=== PATIENT | male | born 1940 | race Caucasian/White ===

== ENCOUNTER 2017-11-12 11:30 | Emergency (ER) | payer MEDICARE ==
[~2017-11-12] VITALS: Ht 177.8 cm; Wt 117.0 kg
[~2017-11-12 11:30] MED LIST: ALLE10TA12 PO; ASCO500C PO; ASPI81TA82 PO; CALTTAB PO; GLUC1CAP14 PO; MOBI7.5T PO; NALT1TAB3 PO; OMEG100037 PO; PIND5 PO; TAB-TAB PO; TAMS0.4C67 PO
[2017-11-12 11:45] VITALS: BP 158/87; PULSE 83; RESP 16; TEMP 98.9; O2SAT 95
[2017-11-12] MEDS ORDERED: METF500T PO (12:49)
[2017-11-12] MEDS ORDERED: METF1000 PO (12:49)
[2017-11-12] MEDS ORDERED: ZOCO20TA PO (12:49)
[2017-11-12] MEDS ORDERED: CANA300T PO (12:49)
[2017-11-12] MEDS ORDERED: ASPI-516 PO (12:49)
[2017-11-12] MEDS ORDERED: CLAR10CA3 PO (12:49)
[2017-11-12] MEDS ORDERED: RANI150T PO (12:49)
[2017-11-12] MEDS ORDERED: PIND5 PO (12:49)
[2017-11-12] MEDS ORDERED: BUPR100T4 PO (12:49)
[2017-11-12] MEDS ORDERED: LIDO1ADH4 (12:49)
--- NOTE | 2017-11-12 13:12 | PD ---
HPI Chief Complaint: Cold / Flu Symptoms Time Seen by Provider: 13:01 Travel History International Travel<30 days: No Contact w/Intl Traveler<30days: No Traveled to known affect area: No History of Present Illness HPI 76-year-old male presents to the emergency department for evaluation of flulike symptoms for 10 days. Patient reports subjective fevers, sore throat, body aches, cough, congestion, shortness of breath. He states that he started with wheezing today. Patient denies any chest pain. He states he did have diarrhea , but this is resolved. Patient's past medical history of diabetes, hypertension, hyperlipidemia, LBBB. Patient denies exacerbating or alleviating factors. Moderate severity. PFSH Past Medical History Cancer: No Cardiovascular Problems: Yes (LEFT BBB) Diabetes: No Endocrine: No Gastrointestinal Disorders: Yes (SLIPPED LAP BAND) Genitourinary: Yes (HX BPH) Hepatitis: No Hiatal Hernia: No Hypertension: Yes Immune Disorder: No Musculoskeletal: Yes (ARTHRITIS, LUMBAR DISC ISSUES) Neurologic: No Psychiatric: No Reproductive: No Respiratory: Yes (SLEEP APNEA/ CPAP) Thyroid Disease: No Past Surgical History Abdominal Surgery: Yes (LAP BAND IMPL.) AICD: No Body Medical Devices: LAP BAND Cardiac Surgery: Yes (CARDIAC CATH) Genitourinary Surgery: Yes (TURP) Joint Replacement: Yes (DANNA. KNEES) Oral Surgery: Yes (T & A) Pacemaker: No Thoracic Surgery: No Other Surgery: Yes Social History Alcohol Use: No Tobacco Use: No Substance Use: No Allergies-Medications (Allergen,Severity, Reaction): Coded Allergies: No Known Allergies (Unverified Adverse Reaction, Unknown, 11/12/17) Reported Meds & Prescriptions Reported Meds & Active Scripts Active Reported Lidoderm (Lidocaine) 5 % Adh..patch Zocor (Simvastatin) 20 Mg Tab 20 Mg PO DAILY Invokana (Canagliflozin) 300 Mg Tab 300 Mg PO DAILY Take before 1st meal of day. Claritin (Loratadine) 10 Mg Cap 10 Mg PO DAILY Bupropion HCl 100 Mg Tab 100 Mg PO BID Metformin (Metformin HCl) 500 Mg Tab 500 Mg PO DAILY With a meal Metformin (Metformin HCl) 1,000 Mg Tab 1,000 Mg PO HS With a meal Ranitidine (Ranitidine HCl) 150 Mg Tab 150 Mg PO BID Pindolol 5 Mg Tab 2.5 Mg PO BID Aspirin 81 Mg Chew 2 Tab PO HS Review of Systems Except as stated in HPI: all other systems reviewed are Neg Physical Exam Narrative GENERAL: Well-nourished, well-developed elderly male patient, afebrile. SKIN: Focused skin assessment warm/dry. HEAD: Normocephalic. Atraumatic. ENT: Mucosa pink and moist. No erythema or exudates. No uvular edema. No uvular , palatal, or tonsillar deviation. Airway patent. Nasal turbinates appear normal without nasal blood, purulent drainage or septal hematoma. Bilateral tympanic membranes are clear without erythema or perforation. EYES: No scleral icterus. No injection or drainage. NECK: Supple, trachea midline. No JVD or lymphadenopathy. CARDIOVASCULAR: Regular rate and rhythm without murmurs, gallops, or rubs. RESPIRATORY: Breath sounds equal bilaterally. No accessory muscle use. Lungs sounds with expiratory and expiratory wheezes noted throughout. GASTROINTESTINAL: Abdomen soft, non-tender, nondistended. MUSCULOSKELETAL: No cyanosis, or edema. BACK: Nontender without obvious deformity. No CVA tenderness. Data Data Last Documented VS Vital Signs Date Time Temp Pulse Resp B/P (MAP) Pulse Ox O2 Delivery O2 Flow Rate FiO2 11/12/17 13:27 98 11/12/17 11:45 98.9 83 16 158/87 (110) Orders Orders Complete Blood Count With Diff (11/12/17 13:08) Basic Metabolic Panel (Bmp) (11/12/17 13:08) Act Partial Throm Time (Ptt) (11/12/17 13:08) Prothrombin Time / Inr (Pt) (11/12/17 13:08) Magnesium (Mg) (11/12/17 13:08) Ckmb (Isoenzyme) Profile (11/12/17 13:08) Troponin I (11/12/17 13:08) Influenzae A/B Antigen (11/12/17 13:08) Iv Access Insert/Monitor (11/12/17 13:08) Electrocardiogram (11/12/17 13:08) Ecg Monitoring (11/12/17 13:08) Oximetry (11/12/17 13:08) Oxygen Administration (11/12/17 13:08) Chest, Pa & Lat (11/12/17 13:08) Sodium Chloride 0.9% Flush (Ns Flush) (11/12/17 13:15) Methylprednisolone So Succ Inj (Solumedr (11/12/17 13:15) Albuterol-Ipratropium Neb (Duoneb Neb) (11/12/17 13:15) Labs Laboratory Tests Test 11/12/17 13:00 White Blood Count 6.4 TH/MM3 Red Blood Count 5.58 MIL/MM3 Hemoglobin 16.2 GM/DL Hematocrit 48.9 % Mean Corpuscular Volume 87.7 FL Mean Corpuscular Hemoglobin 29.0 PG Mean Corpuscular Hemoglobin Concent 33.1 % Red Cell Distribution Width 12.0 % Platelet Count 249 TH/MM3 Mean Platelet Volume 7.1 FL Neutrophils (%) (Auto) 68.9 % Lymphocytes (%) (Auto) 14.8 % Monocytes (%) (Auto) 12.8 % Eosinophils (%) (Auto) 2.7 % Basophils (%) (Auto) 0.8 % Neutrophils # (Auto) 4.4 TH/MM3 Lymphocytes # (Auto) 0.9 TH/MM3 Monocytes # (Auto) 0.8 TH/MM3 Eosinophils # (Auto) 0.2 TH/MM3 Basophils # (Auto) 0.1 TH/MM3 CBC Comment DIFF FINAL Differential Comment Prothrombin Time 10.0 SEC Prothromb Time International Ratio 1.0 RATIO Activated Partial Thromboplast Time 27.6 SEC Blood Urea Nitrogen 19 MG/DL Creatinine 1.30 MG/DL Random Glucose 153 MG/DL Calcium Level 8.8 MG/DL Magnesium Level 2.3 MG/DL Sodium Level 136 MEQ/L Potassium Level 4.4 MEQ/L Chloride Level 100 MEQ/L Carbon Dioxide Level 27.6 MEQ/L Anion Gap 8 MEQ/L Estimat Glomerular Filtration Rate 54 ML/MIN Total Creatine Kinase 59 U/L Troponin I LESS THAN 0.02 NG/ML MDM Medical Decision Making Medical Screen Exam Complete: Yes Emergency Medical Condition: Yes Medical Record Reviewed: Yes Differential Diagnosis Bronchitis versus URI versus pneumonia versus influenza Narrative Course 76-year-old male presents to the emergency department for evaluation of flulike symptoms for 10 days. Patient has inspiratory and expiratory wheezes noted throughout. IV access is established. EKG, CBC, BMP, CK, troponin, magnesium, PTT, PT/INR, and influenza, chest x-ray are ordered and pending. Patient is given DuoNeb 3 and Solu-Medrol 125 mg IV. EKG shows sinus rhythm, left bundle branch block, no acute ST changes, heart rate 80. CBC shows no acute abnormality. BMP shows no acute abnormality. Magnesium is 2.3. CK is 59. Troponin is less than 0.02. Coags are negative. Influenza was positive for flu a. Chest x-ray was reviewed by me my attending physician, Dr. Griffith, no acute infiltrate is seen. On reexamination, patient states he feels much better. Mild expiratory wheezes are noted. He states he feels comfortable going home. Patient will be discharged prescription for azithromycin, albuterol inhaler, prednisone, Tamiflu. He is to follow-up with primary care physician. He is to have a low threshold to return for any acute worsening of symptoms. He verbalizes agreement and understanding. The patient was discharged in stable condition with instructions, including return instructions and follow up instructions. Diagnosis Primary Impression: Influenza Additional Impression: Bronchitis with bronchospasm Referrals: Primary Care Physician 2 days Patient Instructions: Acute Bronchitis (ED), General Instructions, Influenza ( ED) Additional Instructions: Use albuterol inhaler as directed as needed for shortness of breath/wheezing. Take prednisone as directed. Start this tomorrow. Take Tamiflu as directed. Start this today. Take antibiotic, azithromycin, as directed until gone. Start this today. Follow-up with your primary care physician. Return to the emergency department for any acute worsening of symptoms. Med/Other Pt SpecificInfo: Prescription(s) given Scripts Oseltamivir (Tamiflu) 75 Mg Cap 75 MG PO BID for Mgmt Viral Infection for 5 Days, #10 CAP 0 Refills Prov: Gloria Dowell 11/12/17 Azithromycin (Zithromax Z-Donte) 250 Mg Dspk 250 MG PO DIRECTED for Infection, #1 DSPK 0 Refills 500 MG (2 tabs) day 1, then 1 tab days 2-5. Prov: Gloria Dowell 11/12/17 Prednisone (Prednisone) 20 Mg Tab 40 MG PO DAILY for 5 Days, #10 TAB 0 Refills Take 40 mg (2 tablets) daily for 5 days Prov: Gloria Dowell 11/12/17 Albuterol 18 GM Inh (Ventolin Hfa 18 GM Inh) 90 Mcg/Act Aer 2 PUFF INH Q4-6H Y for SHORTNESS OF BREATH, #1 INHALER 0 Refills Prov: Gloria Dowell 11/12/17 Disposition: 01 DISCHARGE HOME Condition: Stable Gloria Dowell Nov 12, 2017 13:12
[2017-11-12] MEDS ORDERED: methylPREDNISolone SOD SUCC 125 MG/2 ML VIAL IV PUSH ONE (13:15)
[2017-11-12] MEDS ORDERED: SODIUM CHLORIDE 0.9% FLUSH 10 ML FLUSH IVF PRN (13:15)
[2017-11-12] MEDS: RESP: ALBUTEROL 2.5 MG/IPRATROPIUM 0.5 MG NEB (SCH) INH (13:25)
[2017-11-12 13:27] VITALS: O2SAT 98
[2017-11-12 13:34] LABS: AUTOMATED NEUTROPHIL # 4.4 TH/MM3 (1.8-7.7); BASOPHIL # 0.1 TH/MM3 (0-0.2); BASOPHIL % 0.8 % (0.0-2.0); EOSINOPHIL # 0.2 TH/MM3 (0-0.4); EOSINOPHIL % 2.7 % (0.0-4.0); HEMATOCRIT 48.9 % (39.0-51.0); HEMOGLOBIN 16.2 GM/DL (13.0-17.0); LYMPH % 14.8 % (9.0-44.0); LYMPHOCYTE # 0.9 TH/MM3 (1.0-4.8); MEAN CELL VOLUME 87.7 FL (80.0-100.0); MEAN CORPUSCULAR HGB CONC 33.1 % (32.0-36.0); MEAN PLATELET VOLUME 7.1 FL (7.0-11.0); MONO % 12.8 % (0.0-8.0); MONOCYTE # 0.8 TH/MM3 (0-0.9); NEUT % 68.9 % (16.0-70.0); PLATELET COUNT 249 TH/MM3 (150-450); RED BLOOD COUNT 5.58 MIL/MM3 (4.50-5.90); WHITE BLOOD COUNT 6.4 TH/MM3 (4.0-11.0)
[2017-11-12 13:41] LABS: CHLORIDE 100 MEQ/L (98-107); SODIUM (NA) 136 MEQ/L (136-145)
[2017-11-12 13:43] LABS: CALCIUM 8.8 MG/DL (8.5-10.1)
[2017-11-12 13:44] LABS: BICARBONATE 27.6 MEQ/L (21.0-32.0); BLOOD UREA NITROGEN 19 MG/DL (7-18); GLUCOSE,RANDOM 153 MG/DL (74-106); MAGNESIUM 2.3 MG/DL (1.5-2.5)
[2017-11-12 13:47] LABS: GLOMERULAR FILTRATION RATE 54 ML/MIN (>89)
[2017-11-12 13:52] LABS: TROPONIN I LESS THAN 0.02 NG/ML (0.02-0.05)
[2017-11-12] MEDS ORDERED: OSEL75 PO (15:31)
[2017-11-12] MEDS ORDERED: PRED20 PO (15:31)
[2017-11-12] MEDS ORDERED: VENTAER INH (15:31)
[2017-11-12] MEDS ORDERED: ZITHTAB PO (15:31)
--- NOTE | 2017-11-12 15:44 | RADRPT ---
EXAM DATE/TIME: 11/12/2017 14:03 [facility] COMPARISON: No previous studies available for comparison. INDICATIONS : Short of breath, cough, fever MEDICAL HISTORY : Diabetes mellitus type II. Hypertension SURGICAL HISTORY : None. ENCOUNTER: Initial ACUITY: 2 weeks PAIN SCORE: 0/10 LOCATION: Bilateral chest FINDINGS: Atherosclerotic changes are noted of the aorta with borderline compensated left ventricular cardiomeg nerissa no acute cardiopulmonary process. CONCLUSION: Compensated cardiomegaly. No acute cardiopulmonary process. Rigoberto Winslow MD on November 12, 2017 at 15:41 Board Certified Radiologist. This report was verified electronically.
--- NOTE | 2017-11-13 17:38 | EKG ---
Date Performed: 11/12/2017 Time Performed: 13:21:58 PTAGE: 76 years EKG: Sinus rhythm MARKED LEFT AXIS DEVIATION LBBB ABNORMAL ECG PREVIOUS TRACING : 01/27/2015 08.00 Since the prior tracing, there has been no significant gaines DOCTOR: Zachery Mahoney Interpretating Date/Time 11/13/2017 17:38:09
== END 2017-11-12 15:38 | disposition home or self-care (01) ==
LOC: PHED 11:30 → PHEFT 15:38
DX: J09.X2 Influenza due to identified novel influenza A virus with other respiratory manifestations (principal); J40 Bronchitis, not specified as acute or chronic; J98.01 Acute bronchospasm; R94.31 Abnormal electrocardiogram [ECG] [EKG]; I10 Essential (primary) hypertension
CPT/HCPCS: 71046; 80048; 82550; 83735; 84484; 85025; 85610; 85730; 87804; 93005; 94640; 94664; 96374; 99285; J2930